=== PATIENT | male | born 1950 | race Caucasian/White ===

== ENCOUNTER 2021-04-16 17:13 | Emergency (ER) | payer BC ==
[2021-04-16 17:50] VITALS: BP 134/77
== END 2021-04-16 18:29 | disposition home or self-care (01) ==
LOC: ED 17:13
DX: S46.812A Strain of other muscles, fascia and tendons at shoulder and upper arm level, left arm, initial encounter (principal); W11.XXXA Fall on and from ladder, initial encounter; Y92.009 Unspecified place in unspecified non-institutional (private) residence as the place of occurrence of the external cause

== ENCOUNTER → 2021-05-04 | Outpatient (CLI) | payer BC | LOC: RAD 10:59 | DX: M67.40 Ganglion, unspecified site (principal) ==

== ENCOUNTER 2021-10-30 10:13 | Outpatient (RCR) | payer OTHER ==
[2021-10-30 10:41] LABS: POTASSIUM 4.7 mmol/L (3.5-5.1)
[2021-10-30 10:42] LABS: ALBUMIN 4.2 g/dL (3.4-4.8)
[2021-10-30 10:43] LABS: CALCIUM 9.3 mg/dL (8.3-10.5)
[2021-10-30 10:44] LABS: TOTAL PROTEIN 7.2 g/dL (6.2-8.1)
[2021-10-30 10:46] LABS: TOTAL BILIRUBIN 0.7 mg/dL (0.2-1.2)
== END 2021-12-04 | disposition home or self-care (01) ==
LOC: LAB
PROVIDERS: Family Medicine
DX: Z13.220 Encounter for screening for lipoid disorders (principal); Z13.1 Encounter for screening for diabetes mellitus; Z00.00 Encounter for general adult medical examination without abnormal findings; Z80.42 Family history of malignant neoplasm of prostate; T45.2X5A Adverse effect of vitamins, initial encounter

== ENCOUNTER 2022-10-07 23:12 | Emergency (ER) | payer MEDICARE ==
[~2022-10-07] VITALS: Wt 85.9 kg
[2022-10-08] MEDS ORDERED: MORGIDOX 1X100100 MG PO (00:26)
[2022-10-08 00:30] VITALS: BP 135/87
== END 2022-10-08 00:30 | disposition home or self-care (01) ==
LOC: ED 23:12
DX: S61.431A Puncture wound without foreign body of right hand, initial encounter (principal); J32.9 Chronic sinusitis, unspecified; W26.8XXA Contact with other sharp object(s), not elsewhere classified, initial encounter

== ENCOUNTER → 2022-11-23 | Outpatient (CLI) | payer MEDICARE ==
[~2022-11-23] MED LIST: MORGIDOX 1X100100 MG PO
[2022-11-23 10:07] LABS: HEMATOCRIT 44.7 % (42.0-52.0); HEMOGLOBIN 15.2 g/dL (13.5-18.0); MEAN PLATELET VOLUME 10.1 fl (7.4-10.4); RED BLOOD COUNT 4.67 M/mm3 (4.20-5.60); RED CELL DISTRIBUTION WIDTH 12.5 % (11.5-14.5); WHITE BLOOD COUNT 5.1 K/mm3 (4.8-10.8)
[2022-11-23 10:15] LABS: ALBUMIN 4.1 g/dL (3.4-4.8); POTASSIUM 4.1 mmol/L (3.5-5.1)
[2022-11-23 10:16] LABS: CALCIUM 9.2 mg/dL (8.3-10.5)
[2022-11-23 10:18] LABS: TOTAL PROTEIN 6.8 g/dL (6.2-8.1)
[2022-11-23 10:19] LABS: TOTAL BILIRUBIN 0.6 mg/dL (0.2-1.2)
== END ==
LOC: LAB 09:54
PROVIDERS: Family Medicine
DX: Z13.1 Encounter for screening for diabetes mellitus (principal); Z13.220 Encounter for screening for lipoid disorders; Z12.5 Encounter for screening for malignant neoplasm of prostate; E78.5 Hyperlipidemia, unspecified; R79.89 Other specified abnormal findings of blood chemistry

== ENCOUNTER → 2023-01-04 | Outpatient (CLI) | payer MEDICARE | LOC: CARDREHAB 12-21 11:32 | DX: Z13.6 Encounter for screening for cardiovascular disorders (principal) | CPT/HCPCS: A9500; J2785 ==

== ENCOUNTER 2024-04-03 09:02 | Emergency (ER) | payer MEDICARE | END 2024-04-03 10:10 | disposition home or self-care (01) | LOC: ED 09:02 | DX: L03.90 Cellulitis, unspecified (principal) ==